=== PATIENT | male | born 1955 | race Caucasian/White ===

== ENCOUNTER 2021-01-19 14:39 | Emergency (ER) | payer MEDICARE, OTHER ==
[~2021-01-19] VITALS: Ht 165.1 cm; Wt 68.0 kg
[~2021-01-19 14:39] MED LIST: AMLO5 PO; CHLO25 PO; CLON.1 PO; COLC.6 PO; FLUC150A PO; HYDACE5 PO; IBUP400 PO; INDO50 PO; Naprosyn500 MG PO; Neurontin 300300 MG PO; RXHYDACE PO; SULTRIDS PO; Ultram50 MG PO
== END 2021-01-19 16:39 | disposition home or self-care (01) ==
LOC: ER 14:39
DX: S51.811A Laceration without foreign body of right forearm, initial encounter (principal); S09.90XA Unspecified injury of head, initial encounter; I69.351 Hemiplegia and hemiparesis following cerebral infarction affecting right dominant side; F10.129 Alcohol abuse with intoxication, unspecified; W01.10XA Fall on same level from slipping, tripping and stumbling with subsequent striking against unspecified object, initial encounter; Y92.481 Parking lot as the place of occurrence of the external cause
CPT/HCPCS: 70450; 99283-25

== ENCOUNTER 2021-04-13 14:01 | Emergency (ER) | payer MEDICARE, OTHER ==
[~2021-04-13] VITALS: Ht 172.7 cm; Wt 68.0 kg
[2021-04-13 14:40] LABS: BASOPHILS ABSOLUTE AUTO 0.04 K/mm3 (0.00-0.23); BASOPHILS PERCENT AUTO 0 % (0-2); EOSINOPHILS ABSOLUTE AUTO 0.04 K/mm3 (0.00-0.68); EOSINOPHILS PERCENT AUTO 0 % (0-6); Hematocrit 45.6 % (37.0-53.0); Hemoglobin 16.2 g/dL (13.5-17.5); IMMATURE GRAN ABSOLUTE AUTO 0.05 K/mm3 (0.00-0.10); IMMATURE GRAN PERCENT AUTO 1 % (0-1); LYMPHOCYTES ABSOLUTE AUTO 1.59 K/mm3 (0.84-5.20); LYMPHOCYTES PERCENT AUTO 15 % (21-46); MONOCYTES ABSOLUTE AUTO 1.47 K/mm3 (0.16-1.47); MONOCYTES PERCENT AUTO 14 % (4-13); Mean Corpuscular HGB 36.7 pg (26.0-34.0); Mean Corpuscular HGB Conc 35.5 g/dL (31.5-36.5); Mean Corpuscular Volume 103 fL (80-100); Mean Platelet Volume 11.3 fL (9.1-12.4); NEUTROPHILS ABSOLUTE AUTO 7.11 K/mm3 (1.96-9.15); NEUTROPHILS PERCENT AUTO 69 % (41-73); Platelet Count 138 K/mm3 (150-400); RDW Coefficient Variation 12.1 % (11.7-14.2); RDW Standard Deviation 46.8 fL (35.1-46.3); Red Blood Cell Count 4.42 M/mm3 (4.30-5.90)
[2021-04-13 15:00] LABS: Alanine Aminotransfer (ALT/SGP 34 U/L (12-78); Albumin, Blood 3.7 g/dL (3.4-5.0); Albumin/Globulin Ratio 0.8 (0.8-1.8); Alk Phos 68 U/L (50-136); Anion Gap 10 mmol/L (6-16); Aspartate Aminotrans (AST/SGOT 38 U/L (12-37); Bilirubin, Total 1.7 mg/dL (0.1-1.0); Blood Urea Nitrogen 17 mg/dL (8-24); Bun/Creatinine Ratio 23.2 (12.0-20.0); CO2, Blood 25 mmol/L (21-32); Calcium, Blood 9.3 mg/dL (8.5-10.1); Chloride, Blood 98 mmol/L (98-108); Creatinine, Blood 0.73 mg/dL (0.60-1.20); Globulin, Blood 4.4 g/dL (2.2-4.0); Glomerular Filtration Rate >60 (60-); Glucose, Blood 125 mg/dL (70-99); Potassium, Blood 3.5 mmol/L (3.5-5.5); Sodium, Blood 133 mmol/L (136-145); Total Protein, Blood 8.1 g/dL (6.4-8.2)
== END 2021-04-13 17:17 | disposition home or self-care (01) ==
LOC: ER 14:01
PROVIDERS: Emergency Medicine
DX: M25.562 Pain in left knee (principal); M25.561 Pain in right knee; F17.200 Nicotine dependence, unspecified, uncomplicated; R53.1 Weakness
CPT/HCPCS: 36415; 70450; 73562-LT; 73562-RT; 80053; 85025; 85651; 86140; 93005; 93010; 99284-25; A9270

== ENCOUNTER 2021-06-22 16:19 | Observation (INO) | payer OTHER ==
[~2021-06-22] VITALS: Ht 167.6 cm; Wt 57.4 kg
[2021-06-22 17:12] LABS: BASOPHILS ABSOLUTE AUTO 0.03 K/mm3 (0.00-0.23); BASOPHILS PERCENT AUTO 0 % (0-2); EOSINOPHILS ABSOLUTE AUTO 0.09 K/mm3 (0.00-0.68); EOSINOPHILS PERCENT AUTO 1 % (0-6); Hematocrit 38.4 % (37.0-53.0); Hemoglobin 13.9 g/dL (13.5-17.5); IMMATURE GRAN ABSOLUTE AUTO 0.03 K/mm3 (0.00-0.10); IMMATURE GRAN PERCENT AUTO 0 % (0-1); LYMPHOCYTES ABSOLUTE AUTO 1.78 K/mm3 (0.84-5.20); LYMPHOCYTES PERCENT AUTO 19 % (21-46); MONOCYTES ABSOLUTE AUTO 1.26 K/mm3 (0.16-1.47); MONOCYTES PERCENT AUTO 13 % (4-13); Mean Corpuscular HGB 36.8 pg (26.0-34.0); Mean Corpuscular HGB Conc 36.2 g/dL (31.5-36.5); Mean Corpuscular Volume 102 fL (80-100); NEUTROPHILS ABSOLUTE AUTO 6.43 K/mm3 (1.96-9.15); NEUTROPHILS PERCENT AUTO 67 % (41-73); Platelet Count 197 K/mm3 (150-400); RDW Coefficient Variation 13.6 % (11.7-14.2); RDW Standard Deviation 51.5 fL (35.1-46.3); Red Blood Cell Count 3.78 M/mm3 (4.30-5.90); White Blood Cell Count 9.62 K/mm3 (4.00-11.30)
[2021-06-22 17:26] LABS: Alanine Aminotransfer (ALT/SGP 31 U/L (12-78); Albumin, Blood 3.3 g/dL (3.4-5.0); Albumin/Globulin Ratio 0.9 (0.8-1.8); Alk Phos 80 U/L (50-136); Anion Gap 14 mmol/L (6-16); Aspartate Aminotrans (AST/SGOT 45 U/L (12-37); Bilirubin, Total 1.1 mg/dL (0.1-1.0); Blood Urea Nitrogen 17 mg/dL (8-24); Bun/Creatinine Ratio 13.9 (12.0-20.0); CO2, Blood 19 mmol/L (21-32); Calcium, Blood 9.6 mg/dL (8.5-10.1); Chloride, Blood 105 mmol/L (98-108); Creatinine, Blood 1.22 mg/dL (0.60-1.20); Globulin, Blood 3.6 g/dL (2.2-4.0); Glomerular Filtration Rate 59 (60-); Glucose, Blood 88 mg/dL (70-99); Potassium, Blood 3.9 mmol/L (3.5-5.5); Sodium, Blood 138 mmol/L (136-145); Total Protein, Blood 6.9 g/dL (6.4-8.2); Troponin I <0.015 ng/mL (0.000-0.040)
[2021-06-22 20:06] LABS: Source, Urine Clean Catch
[2021-06-22 20:09] LABS: Blood, Urine 1+ (Neg); Color, Urine Amber (P-Yellow); Glucose Qualitative, Urine Neg (Neg); Ketones, Urine 4+ (Neg); Leukocyte Esterase, Urine 1+ (Neg); Nitrite, Urine Pos (Neg); Protein, Urine 3+ (Neg); Specific Gravity, Urine 1.015 (1.003-1.022); Urobilinogen, Urine 3+ (Normal); pH, Urine 6.5 (5.0-8.0)
[2021-06-22 20:15] LABS: Appearance, Urine Hazy (Clear); Bilirubin, Urine 2+ (Neg)
[2021-06-22 20:18] LABS: U Amphetamine Screen DETECTED; U Barbituate Screen Not Detected; U Benzodiazapine Screen Not Detected; U Buprenorphine Screen Not Detected; U Cannabinoids Screen Not Detected; U Cocaine Screen Not Detected; U Methadone Screen Not Detected; U Methamphetamine Screen DETECTED; U Opiates Screen Not Detected; U Oxycodone Screen Not Detected; U Phencyclidine Screen Not Detected; U Propoxyphene Screen Not Detected
[2021-06-22 20:21] LABS: Red Blood Cells, Urine 0-2 /hpf (0-2); Squamous Epithelial Cells Rare /hpf (Few)
[2021-06-22 20:22] LABS: Bacteria Few /hpf
[2021-06-22 20:27] LABS: Salicylate 1.8 mg/dL (2.8-20.0)
[2021-06-22 20:29] LABS: Acetaminophen, Random <2.0 ug/mL (10.0-30.0)
[2021-06-22 22:00] LABS: Ethanol (Alcohol), Blood, Med <3 mg/dL; Phosphorus, Blood 3.8 mg/dL (2.5-4.9)
[2021-06-22 22:15] LABS: Base Excess Venous -1.4 mmol/L; Bicarbonate Venous 23.2 mmol/L (24.0-30.0); PCO2 Venous 38.4 mmHg (38-42); PO2 Venous 55.2 mmHg (38-42); pH Blood Venous 7.39 (7.34-7.37)
[2021-06-23 04:45] LABS: BASOPHILS ABSOLUTE AUTO 0.02 K/mm3 (0.00-0.23); BASOPHILS PERCENT AUTO 0 % (0-2); EOSINOPHILS ABSOLUTE AUTO 0.18 K/mm3 (0.00-0.68); EOSINOPHILS PERCENT AUTO 3 % (0-6); Hematocrit 36.9 % (37.0-53.0); Hemoglobin 12.7 g/dL (13.5-17.5); IMMATURE GRAN ABSOLUTE AUTO 0.01 K/mm3 (0.00-0.10); IMMATURE GRAN PERCENT AUTO 0 % (0-1); LYMPHOCYTES ABSOLUTE AUTO 1.58 K/mm3 (0.84-5.20); LYMPHOCYTES PERCENT AUTO 26 % (21-46); MONOCYTES ABSOLUTE AUTO 0.85 K/mm3 (0.16-1.47); MONOCYTES PERCENT AUTO 14 % (4-13); Mean Corpuscular HGB 36.2 pg (26.0-34.0); Mean Corpuscular HGB Conc 34.4 g/dL (31.5-36.5); Mean Corpuscular Volume 105 fL (80-100); Mean Platelet Volume 10.7 fL (9.1-12.4); NEUTROPHILS ABSOLUTE AUTO 3.39 K/mm3 (1.96-9.15); NEUTROPHILS PERCENT AUTO 56 % (41-73); Platelet Count 148 K/mm3 (150-400); RDW Coefficient Variation 13.5 % (11.7-14.2); RDW Standard Deviation 52.6 fL (35.1-46.3); Red Blood Cell Count 3.51 M/mm3 (4.30-5.90); White Blood Cell Count 6.03 K/mm3 (4.00-11.30)
[2021-06-23 05:10] LABS: Alanine Aminotransfer (ALT/SGP 24 U/L (12-78); Albumin, Blood 2.6 g/dL (3.4-5.0); Albumin/Globulin Ratio 0.8 (0.8-1.8); Alk Phos 67 U/L (50-136); Anion Gap 8 mmol/L (6-16); Aspartate Aminotrans (AST/SGOT 32 U/L (12-37); Bilirubin, Total 0.5 mg/dL (0.1-1.0); Blood Urea Nitrogen 13 mg/dL (8-24); Bun/Creatinine Ratio 14.6 (12.0-20.0); CO2, Blood 26 mmol/L (21-32); Calcium, Blood 8.3 mg/dL (8.5-10.1); Chloride, Blood 105 mmol/L (98-108); Creatinine, Blood 0.89 mg/dL (0.60-1.20); Globulin, Blood 3.3 g/dL (2.2-4.0); Glomerular Filtration Rate >60 (60-); Glucose, Blood 119 mg/dL (70-99); Potassium, Blood 3.1 mmol/L (3.5-5.5); Sodium, Blood 139 mmol/L (136-145); Total Protein, Blood 5.9 g/dL (6.4-8.2)
[2021-06-23] MEDS ORDERED: 8 HOUR ACETAMI650 MG PO (09:56)
--- NOTE | 2021-06-23 17:22 | NUR ---
SHIFT SUMMARY PT AAO ONLY TO SELF, [place], PLEASANTLY CONFUSED AND REDIRECTABLE. COOPERATIVE TO CARE. NO C/O PAIN OR ANY DISCOMFORT THIS SHIFT. PT REQUIRES 2P MAX ASSIST WITH BED MOBILITY D/T R SIDED WEAKNESS. PT IS INCONTINENT/CONTINENT, DENIES DYSURIA. PT WORKED WITH THERAPY THIS SHIFT. BED AT LOWEST POSITION W/ ALARM ON FOR SAFETY. BED AT LOWEST POSITION. CALL LIGHT WITHIN REACH.
--- NOTE | 2021-06-24 06:25 | NUR ---
COMBINATION MAN SUMMARY PT AAOX1 BUT PLEASANT. VERY CONFUSED WITH NON SENSICAL SPEECH AT TIMES. CIWA OF 3 DUE TO CONFUSION BUT NO HEADACHE, TREMORS, OR HALLUCINATIONS NOTED. BED ALARM ON PT FORGETS WHERE HE IS AND TRIES TO GET OUT OF BED WITHOUT ASSIST AT TIMES. BED LINENS CHANGED SEVERAL TIMES THROUGH THE NIGHT DUE TO PT PULLING DOWN ATTENDS AND URINATING ON THE BED AND FLOOR. PT CAN USE URINAL AT TIMES BUT SAYS HE FORGETS. VSS, WILL CONTINUE TO MONITOR.
[2021-06-24 06:29] LABS: Hematocrit 40.9 % (37.0-53.0); Hemoglobin 14.5 g/dL (13.5-17.5); Mean Corpuscular HGB 36.7 pg (26.0-34.0); Mean Corpuscular HGB Conc 35.5 g/dL (31.5-36.5); Mean Corpuscular Volume 104 fL (80-100); Mean Platelet Volume 11.5 fL (9.1-12.4); Platelet Count 176 K/mm3 (150-400); RDW Coefficient Variation 13.2 % (11.7-14.2); Red Blood Cell Count 3.95 M/mm3 (4.30-5.90); White Blood Cell Count 8.42 K/mm3 (4.00-11.30)
[2021-06-24 07:20] LABS: Alanine Aminotransfer (ALT/SGP 25 U/L (12-78); Albumin, Blood 2.9 g/dL (3.4-5.0); Albumin/Globulin Ratio 0.7 (0.8-1.8); Alk Phos 86 U/L (50-136); Anion Gap 10 mmol/L (6-16); Aspartate Aminotrans (AST/SGOT 34 U/L (12-37); Bilirubin, Total 0.8 mg/dL (0.1-1.0); Blood Urea Nitrogen 6 mg/dL (8-24); Bun/Creatinine Ratio 7.9 (12.0-20.0); CO2, Blood 26 mmol/L (21-32); Calcium, Blood 8.9 mg/dL (8.5-10.1); Chloride, Blood 98 mmol/L (98-108); Creatinine, Blood 0.76 mg/dL (0.60-1.20); Globulin, Blood 3.9 g/dL (2.2-4.0); Glomerular Filtration Rate >60 (60-); Glucose, Blood 83 mg/dL (70-99); Potassium, Blood 3.1 mmol/L (3.5-5.5); Sodium, Blood 134 mmol/L (136-145); Total Protein, Blood 6.8 g/dL (6.4-8.2)
--- NOTE | 2021-06-24 18:36 | NUR ---
A&OX1, PLEASANT AND COOPERATIVE WITH CARE, UNAWARE OF LIMITATIONS, BED/CHAIR ALARMS UTILIZED FOR SAFETY. PT IS ONE ASSIST TO BATHROOM WITH FWW AND GB. PARTICIPATED WITH PT/OT AND TOLERATED WELL. CIWA ONLY 3 ALL DAY AND THAT HAS BEEN DUE TO CONFUSION. PT REPORTED PAIN ALL OVER TO DR. RODGERS THIS AM, PT HAS SINCE DENIED PAIN WITHOUT INTERVENTION. PT DENIES N/V, SOB. PT HAS BEEN ABLE TO FEED SELF AND HAS HAD FAIR PO INTAKE. IV FELL OUT PT WAS ATTEMPTING TO STAND UNASSISTED, RECIEVED ORDER FROM DR. RODGERS FOR NO IV ACCESS NEEDED. NO OTHER CHANGES OR CONCERNS.
[2021-06-25 04:50] LABS: Hemoglobin 13.1 g/dL (13.5-17.5); Mean Corpuscular HGB 36.2 pg (26.0-34.0); Mean Corpuscular HGB Conc 35.4 g/dL (31.5-36.5); Mean Corpuscular Volume 102 fL (80-100); Mean Platelet Volume 10.8 fL (9.1-12.4); Platelet Count 163 K/mm3 (150-400); RDW Coefficient Variation 13.2 % (11.7-14.2); RDW Standard Deviation 49.8 fL (35.1-46.3); Red Blood Cell Count 3.62 M/mm3 (4.30-5.90); White Blood Cell Count 6.78 K/mm3 (4.00-11.30)
[2021-06-25 05:41] LABS: Alanine Aminotransfer (ALT/SGP 20 U/L (12-78); Albumin, Blood 2.6 g/dL (3.4-5.0); Albumin/Globulin Ratio 0.7 (0.8-1.8); Alk Phos 80 U/L (50-136); Anion Gap 8 mmol/L (6-16); Aspartate Aminotrans (AST/SGOT 25 U/L (12-37); Bilirubin, Total 0.7 mg/dL (0.1-1.0); Blood Urea Nitrogen 6 mg/dL (8-24); Bun/Creatinine Ratio 8.5 (12.0-20.0); CO2, Blood 26 mmol/L (21-32); Calcium, Blood 8.7 mg/dL (8.5-10.1); Chloride, Blood 103 mmol/L (98-108); Creatinine, Blood 0.71 mg/dL (0.60-1.20); Globulin, Blood 3.5 g/dL (2.2-4.0); Glomerular Filtration Rate >60 (60-); Glucose, Blood 103 mg/dL (70-99); Magnesium, Blood 1.7 mg/dL (1.6-2.4); Potassium, Blood 3.6 mmol/L (3.5-5.5); Sodium, Blood 137 mmol/L (136-145); Total Protein, Blood 6.1 g/dL (6.4-8.2)
--- NOTE | 2021-06-25 05:56 | NUR ---
PT ORIENTED TO SELF ONLY, SOMETIMES KNOWS HE IS AT HOSPITAL. VSS ON RA. CIWA 18 AND 15, PRODUCTION HONING MACHINE OPERATOR ATTEMPTED TO PLACE PIV FOR IV ATIVAN. PIV UNSUCCESSFUL. PO LIBRIUM GIVEN. PT SLEEPING B/W CARE. PT IMPULSIVE AND FREQUENTLY TRYING TO GET OOB, NOT USING CALL LIGHT. PT FREQUENTLY URINATING ON FLOOR. THIS AM ATTEMPTING TO USE URINAL. REPOSITIONED IN BED NEEDED.
--- NOTE | 2021-06-25 11:44 | NUR ---
ALERT TO SELF AND SURROUNDINGS. UNSURE WHY HE IS HERE. IMPULSIVE. KNOWS HE HAS RT SIDED WEAKNESS, BUT DOES TRY TO GET OOB ON HIS OWN. ALARMS USED. [place]. UNLABORED RESPIRATIONS. SISTER LEFT NOTE ABOUT PATIENT HAVING PAIN TO RT GREAT TOE FOR FEW DAYS AND WHEN PATINET QUERIED ABOUT ANY PAIN TO TOES OR FEET, PATIENT DENIES. BRUISING T/O. WC
--- NOTE | 2021-06-25 17:29 | NUR ---
ALERT TO SELF AND SURROUNDINGS. INCONTINENT OF URINE. PATIENT STANDS AND URINATES ON THE FLOOR AND HIMSELF. ONE PERSON ASSIST WITH GAITBELT AND WALKER WHEN UP. MULTIPLE BRUISES T/O FROM FALLING AT HOME. PATIENT MENTIONS ABOUT DIFFERENT TIMES HE HAS FALLEN AT HOME EITHER IN THE HOUSE OR OUTSIDE. UNLABORED RESPIRATIONS. NO ACUTE CHANGES. WCTM
--- NOTE | 2021-06-25 19:15 | NUR ---
ASSUMED CARE RECEIVED REPORT FROM ELSA NEFF. PT RESTING IN NAD. NO ACUTE NEEDS ASSESSED AT THIS TIME. CALL LIGHT, POSSESSIONS IN REACH, BED IN LOW AND LOCKED POSITION WITH ALARMS ON.
--- NOTE | 2021-06-26 04:07 | NUR ---
CLOTHING EXAMINER SUMMARY PT ASLEEP, IN NAD. APPEARED TO SLEEP T/O MUCH OF THE NIGHT. NO ACUTE CHANGES TO REPORT OVERNIGHT, CIWAS STABLE. PT CALM AND COOPERATIVE WITH CARES; NO BEHAVIORAL OUTBURSTS NOTED. NO ACUTE NEEDS ASSESSED AT THIS TIME. CALL LIGHT, POSSESSIONS IN REACH, BED IN LOW AND LOCKED POSITION WITH ALARMS ON. WILL CONTINUE TO PROVIDE CARE UNTIL REPORT GIVEN TO ONCOMING RN.
--- NOTE | 2021-06-26 08:00 | NUR ---
PT PLEASANT CONFUSED, ABLE TO TELL ME NAME AND . NOT SURE MUCH ELSE. FOLLOWS BASIC COMMANDS. NO SHAKING, TREMORS, DIZZINESS REPORTED. NO OBSERVABLE SWEATING, DENIES PAIN AT THIS TIME. HR REG, NO MURMER NOTED.. NO TELE. LUNGS CLEAR, RESP EASY UNLABORED. ON R.A. BT X4 ALST BM YEST AM PER PT. VOIDS INCONT. BED IN LOW POSITION, CALL LITE IN REACH, BED ALARM ON FOR SAFETY
[2021-06-26] MEDS ORDERED: ONE DAILY ESS400 MCG PO (09:22)
[2021-06-26] MEDS ORDERED: HYDCOR2.5C TOP (09:22)
--- NOTE | 2021-06-26 11:29 | NUR ---
DISCHARGE REVIEWED WITH PT AND SISTER. NO TELE NO IV. PT / SIS STATES UNDERSTANDS. FORMS GIVEN TO SISTER FOR MED AUTH. PT WHEELED TO DOOR BY AIDE AT 1133
== END 2021-06-26 11:28 | disposition home health service (06) ==
LOC: ER 16:19 → MEDS 16:20 → ER 22:19 → MEDS 22:19 → EDPENDDIS 06-26 08:54 → ENPENDDIS 06-26 08:54 → MEDS 06-26 11:28
PROVIDERS: Internal Medicine; Nurse Practitioner Acute Care; Physician Assistant; Student in an Organized Health Care Education/Training Program; ADMIT Internal Medicine
DX: G92 Toxic encephalopathy (principal); N17.9 Acute kidney failure, unspecified; F17.200 Nicotine dependence, unspecified, uncomplicated; F10.20 Alcohol dependence, uncomplicated; E87.6 Hypokalemia; E46 Unspecified protein-calorie malnutrition; F15.10 Other stimulant abuse, uncomplicated; I10 Essential (primary) hypertension; I69.151 Hemiplegia and hemiparesis following nontraumatic intracerebral hemorrhage affecting right dominant side
CPT/HCPCS: 36415; 70450; 71045; 72125; 80053; 81001; 82550; 82607; 82746; 82803; 82947; 83605; 83735; 84100; 84443; 84484; 85025; 85027; 86592; 87040; 87086; 92610; 93005; 93010; 96361; 96365; 96366; 96372; 96374; 96375; 97110; 97116; 97129; 97162; 97166; 97530; 97535; 99285-25; A9270; G0378; G0480; J0696; J1650; J2060; J3411; J3475; J7030; J7042; J7120

== ENCOUNTER 2021-07-08 17:49 | Observation (INO) | payer OTHER ==
[~2021-07-08] VITALS: Ht 172.7 cm; Wt 57.1 kg
[~2021-07-08 17:49] MED LIST changes: +8 HOUR ACETAMI650 MG PO; +HYDCOR2.5C TOP; +ONE DAILY ESS400 MCG PO
[2021-07-08 18:51] LABS: BASOPHILS ABSOLUTE AUTO 0.03 K/mm3 (0.00-0.23); BASOPHILS PERCENT AUTO 0 % (0-2); EOSINOPHILS ABSOLUTE AUTO 0.08 K/mm3 (0.00-0.68); EOSINOPHILS PERCENT AUTO 1 % (0-6); IMMATURE GRAN ABSOLUTE AUTO 0.03 K/mm3 (0.00-0.10); IMMATURE GRAN PERCENT AUTO 0 % (0-1); LYMPHOCYTES ABSOLUTE AUTO 1.41 K/mm3 (0.84-5.20); LYMPHOCYTES PERCENT AUTO 15 % (21-46); MONOCYTES ABSOLUTE AUTO 0.84 K/mm3 (0.16-1.47); MONOCYTES PERCENT AUTO 9 % (4-13); Mean Corpuscular HGB 36.3 pg (26.0-34.0); Mean Corpuscular HGB Conc 34.2 g/dL (31.5-36.5); Mean Corpuscular Volume 106 fL (80-100); NEUTROPHILS ABSOLUTE AUTO 7.33 K/mm3 (1.96-9.15); NEUTROPHILS PERCENT AUTO 76 % (41-73); Platelet Count 236 K/mm3 (150-400); RDW Coefficient Variation 13.2 % (11.7-14.2); RDW Standard Deviation 52.7 fL (35.1-46.3); Red Blood Cell Count 3.58 M/mm3 (4.30-5.90); White Blood Cell Count 9.72 K/mm3 (4.00-11.30)
[2021-07-08 19:10] LABS: Alanine Aminotransfer (ALT/SGP 26 U/L (12-78); Albumin, Blood 3.6 g/dL (3.4-5.0); Albumin/Globulin Ratio 0.9 (0.8-1.8); Alk Phos 98 U/L (50-136); Anion Gap 17 mmol/L (6-16); Aspartate Aminotrans (AST/SGOT 46 U/L (12-37); Bilirubin, Total 1.1 mg/dL (0.1-1.0); Blood Urea Nitrogen 16 mg/dL (8-24); Bun/Creatinine Ratio 13.2 (12.0-20.0); CO2, Blood 17 mmol/L (21-32); Calcium, Blood 9.7 mg/dL (8.5-10.1); Chloride, Blood 106 mmol/L (98-108); Creatinine, Blood 1.21 mg/dL (0.60-1.20); Glomerular Filtration Rate 60 (60-); Glucose, Blood 76 mg/dL (70-99); Potassium, Blood 4.1 mmol/L (3.5-5.5); Sodium, Blood 140 mmol/L (136-145); Total Protein, Blood 7.6 g/dL (6.4-8.2)
[2021-07-08 19:13] LABS: International Normalized Ratio 0.97; Prothrombin Time Results 10.5 Sec (9.7-11.5)
[2021-07-08 21:06] LABS: Source, Urine Clean Catch
[2021-07-08 21:07] LABS: Ethanol (Alcohol), Blood, Med <3 mg/dL
[2021-07-08 21:07] LABS: Bilirubin, Urine Neg (Neg); Blood, Urine Neg (Neg); Glucose Qualitative, Urine Neg (Neg); Ketones, Urine 4+ (Neg); Leukocyte Esterase, Urine Neg (Neg); Nitrite, Urine Neg (Neg); Protein, Urine 1+ (Neg); Specific Gravity, Urine 1.025 (1.003-1.022); Urobilinogen, Urine 1+ (Normal)
[2021-07-08 21:20] LABS: Appearance, Urine Clear (Clear); Color, Urine Yellow (P-Yellow)
[2021-07-08 21:21] LABS: U Amphetamine Screen DETECTED; U Methamphetamine Screen DETECTED
[2021-07-08 21:22] LABS: U Barbituate Screen Not Detected; U Benzodiazapine Screen DETECTED; U Buprenorphine Screen Not Detected; U Cannabinoids Screen Not Detected; U Cocaine Screen Not Detected; U Methadone Screen Not Detected; U Opiates Screen Not Detected; U Oxycodone Screen Not Detected; U Phencyclidine Screen Not Detected; U Propoxyphene Screen Not Detected
[2021-07-09 00:11] LABS: SARS-Cov-2 (COVID-19) PCR, MMC NEGATIVE (NEGATIVE)
--- NOTE | 2021-07-09 22:22 | NUR ---
PATIENT IS A NEW ADMIT FROM THE ED. FOUR PERSON TRANSFER FROM [facility] TO BED. ALERT TO SELF, SOMNOLENCE AND [place]. NO IV ON ADMIT. SEIZURE PRECAUTIONS AND PADS PLACED. REPORTS FOREARM PAIN WITH TOUCH AND FRAGILE SKIN. SKIN GRAFTS NOTED ON FOREARM AND RIGHT OUTER THIGH. DENIES SOB AND N/V. ON ROOM AIR. [facility] CONSULT FAXED INTO ED. SLEEPING ON/OFF DURING ASSESSMENT. BED ALARM ACTIVATED WITH FALL RISK. CALL LIGHT IN REACH.
--- NOTE | 2021-07-09 23:01 | NUR ---
PIV PLACED AND NS STARTED AT 75mL/HR X ONE BAG. PATIENT SLEEPING. CALL LIGHT IN REACH.
--- NOTE | 2021-07-10 04:16 | NUR ---
SHIFT SUMMARY PATIENT HAD NO ACUTE CHANGES OBSERVED. ALERT TO SELF AND BEDREST. [place] AND ON ROOM AIR. PIV REMAINS INTACT. NS INFUSING AT 75mL/HR X ONE. VSS/AFEBRILE. DENIES PAIN, SOB, AND N/V. PATIENT SOMNOLENT T/O SHIFT. CIWA 4-5. CALL LIGHT IN REACH. BED IN LOWEST POSITION AND ALARM ACTIVATED. WILL CONTINUE TO MONITOR UNTIL DAY SHIFT NURSE ASSUMES CARE.
[2021-07-10 06:01] LABS: Anion Gap 9 mmol/L (6-16); Blood Urea Nitrogen 10 mg/dL (8-24); Bun/Creatinine Ratio 14.3 (12.0-20.0); CO2, Blood 21 mmol/L (21-32); Calcium, Blood 9.4 mg/dL (8.5-10.1); Chloride, Blood 109 mmol/L (98-108); Glomerular Filtration Rate >60 (60-); Glucose, Blood 55 mg/dL (70-99); Potassium, Blood 3.9 mmol/L (3.5-5.5); Sodium, Blood 139 mmol/L (136-145)
--- NOTE | 2021-07-10 06:48 | NUR ---
PATIENT LAB CBG 55. HOSPITALIST DR MUKHERJEE NOTIFIED AFTER GIVING ORANGE JUICE AND FEW BITES OF SANDWICH. DR MUKHERJEE REPORTS TO GIVE DEXTROSE 50% 25mL IV X ONE AND RECHECK IN 20 MINUTES. CBG WAS 76 ON ADMIT.
--- NOTE | 2021-07-10 07:15 | NUR ---
CBG RECHECK 146, UP FROM CBG 55 AFTER DEXTROSE 50% IV 25mL. PATIENT SLEEPING BUT AROUSABLE.
--- NOTE | 2021-07-10 17:44 | NUR ---
PATIENT IS ALERT AND ORIENTED TO SELF AND FOLLOWING DIRECTIONS. HE HAS BEEN UP IN THE CHAIR MOST OF THE SHIFT. HE HAS WORKED WITH PT AND OT TODAY. 1PA WITH GAITBELT AND FWW TO THE BATHROOM. HE HAD A LARGE BM TODAY. USES THE URINAL. WILL CONTINUE TO MONITOR
--- NOTE | 2021-07-11 03:52 | NUR ---
SHIFT SUMMARY PATIENT HAD NO ACUTE CHANGES OBSERVED. AXOX 2-3 WITH CONFUSION. [place] AND ON ROOM AIR. ONE ASSIST W/GAITBELT AND FWW TO BATHROOM. USES URINAL AT BEDSIDE. TOOK MEDICATION WHOLE WITH WATER. DENIES PAIN, SOB, AND N/V. PIV REMAINS INTACT. D5-NS INFUSING AT 50 mL/HR. CIWA-3. VSS/AFEBRILE. ON [place]ERA. CALL LIGHT IN REACH. BED IN LOWEST POSITION AND ALARM ACTIVATED. WILL CONTINUE TO MONITOR UNTIL DAY SHIFT NURSE ASSUMES CARE.
--- NOTE | 2021-07-11 17:45 | NUR ---
PATIENT IS ALERT AND ORIENTED TO SELF, SURROUNDINGS AND FOLLOWING DIRECTIONS. HE USES THE URINAL INDEPENDENTLY. 1PA WITH FWW AND GAITBELT TO THE BATHROOM AND CHAIR. BEDLARM AND CHAIR ALARM IN PLACE. WILL CONTINUE TO MONITOR
--- NOTE | 2021-07-12 04:22 | NUR ---
PATIENT HAS BEEN PLEASANTLY CONFUSED. COOPERATIVE WITH STAFF AND CARE PROVIDED. CONTINUES ON DEXTROSE IVF. VITALS STABLE. SLEPT WELL T/O THE SHIFT. NO COMPLAINTS OR INDICATION OF PAIN NOTED OR REPORTED. CALL LIGHT WITHIN REACH.
--- NOTE | 2021-07-12 17:29 | NUR ---
PATIENT IS ALERT AND ORIENTED TO SELF, FAMILY AND FOLLOWING DIRECTIONS. HE DOES NOT KNOW WHY HE IS HERE. PATIENT USES THE URINAL INDEPENDENTLY. HE IS 1PA WITH FWW AND GAITBELT TO AMBULATE THE HALLS AND TO THE BATHROOM. HE WILL SIT UP IN THE CHAIR FOR MEALS. HE HAS A GOOD APPETITE. MILLE LACS. WILL CONTINUE TO MONITOR
--- NOTE | 2021-07-13 04:18 | NUR ---
SHIFT SUMMARY: PT IS ALERT AND CONFUSED. PT IS CALM AND COOPERATIVE WITH CARE. PT DOES NOT USE HIS CALL LIGHT BUT IS ABLE TO USE HIS URINAL INDEPENDENTLY WITH OCCASIONAL SPILLAGE, CHANGED AND CLEANED NEEDED. PT TOOK HIS MEDICATION WHOLE WITH WATER WITHOUT INCIDENT. PT SHOWS NO S/S FOR PAIN, NAUSEA, VOMITING, OR SOB. NO ACUTE CHANGES OR COMPLICATIONS OVERNIGHT. BED IN LOW POSITION, CALL LIGHT WITHIN REACH. WILL REPORT TO DAY NURSE.
--- NOTE | 2021-07-13 18:44 | NUR ---
shift summary: pt a/o to self and place. pt had no s/s of withdrawals t/out shift. He did have nausea post lunch reporting the burrito upset his stomach. zofran given for nausea and was effective. no other concerns through/out the day.
--- NOTE | 2021-07-14 04:28 | NUR ---
PATIENT IS PLEASANTLY CONFUSED; CAN BECOME IRRITABLE AND GROUCHY BUT COOPERATIVE WITH STAFF. VITALS STABLE. THERE HAVE BEEN NO ACUTE CHANGES TO REPORT OF AT THIS TIME.
[2021-07-14] MEDS ORDERED: QUET25 PO (12:11)
--- NOTE | 2021-07-14 13:40 | NUR ---
D/C ORDERS RECIEVED AND REVIEWED. KAITLIN IV REMOVED INTACT WITHOUTH DIFFICULTY, PT TOLERATED WELL. D/C INSTRUCTIONS AND HOME MEDS REVIEWED WITH PT. NEW RX FAXED TO PT'S PHARMACY OF CHOICE, [facility] PT VEBALIZED UNDERSTANDING AND AGREES WITH PLAN/ PT D/C HOME WITH SISTER AND TRANSPORTED VIA W/C BY [facility].
== END 2021-07-14 13:35 | disposition home health service (06) ==
LOC: ER 17:49 → MEDS 17:50 → ER 17:50 → EOR 17:50 → ERHOLD 17:50 → EOR 17:50 → MEDS 07-09 21:32
PROVIDERS: Internal Medicine; Physician Assistant; ADMIT Emergency Medicine
DX: G92 Toxic encephalopathy (principal); T43.625A Adverse effect of amphetamines, initial encounter; T42.4X5A Adverse effect of benzodiazepines, initial encounter; I69.351 Hemiplegia and hemiparesis following cerebral infarction affecting right dominant side; N17.9 Acute kidney failure, unspecified; E16.2 Hypoglycemia, unspecified; F10.10 Alcohol abuse, uncomplicated; F17.200 Nicotine dependence, unspecified, uncomplicated; F15.10 Other stimulant abuse, uncomplicated; E44.0 Moderate protein-calorie malnutrition; Z68.25 Body mass index [BMI] 25.0-25.9, adult; Z51.5 Encounter for palliative care; Z20.822 Contact with and (suspected) exposure to COVID-19
CPT/HCPCS: 36415; 70450; 80048; 80053; 82947; 85025; 85610; 85730; 93005; 93010; 96372-59; 96374; 96375; 97112; 97116; 97162; 97166; 97530; 97535; 99285-25; A9270; G0378; G0480; J1200; J1630; J2060; J7030; J7042; U0004

== ENCOUNTER 2023-06-13 07:58 | Inpatient (IN) | payer OTHER ==
[~2023-06-13] VITALS: Ht 167.6 cm; Wt 72.8 kg
[2023-06-13] VITALS (8 sets, daily range): BP systolic 162–196; BP diastolic 67–101
[~2023-06-13 07:58] MED LIST changes: +QUET25 PO
[2023-06-13 09:18] LABS: BASOPHILS ABSOLUTE AUTO 0.02 K/mm3 (0.00-0.23); BASOPHILS PERCENT AUTO 0 % (0-2); EOSINOPHILS ABSOLUTE AUTO 0.01 K/mm3 (0.00-0.68); EOSINOPHILS PERCENT AUTO 0 % (0-6); Hematocrit 40.9 % (37.0-53.0); Hemoglobin 14.7 g/dL (13.5-17.5); IMMATURE GRAN ABSOLUTE AUTO 0.06 K/mm3 (0.00-0.10); IMMATURE GRAN PERCENT AUTO 1 % (0-1); LYMPHOCYTES ABSOLUTE AUTO 1.12 K/mm3 (0.84-5.20); LYMPHOCYTES PERCENT AUTO 9 % (21-46); MONOCYTES ABSOLUTE AUTO 1.06 K/mm3 (0.16-1.47); MONOCYTES PERCENT AUTO 9 % (4-13); Mean Corpuscular HGB 38.6 pg (26.0-34.0); Mean Corpuscular HGB Conc 35.9 g/dL (31.5-36.5); Mean Corpuscular Volume 107 fL (80-100); NEUTROPHILS ABSOLUTE AUTO 10.08 K/mm3 (1.96-9.15); NEUTROPHILS PERCENT AUTO 82 % (41-73); Platelet Count 110 K/mm3 (150-400); RDW Coefficient Variation 13.5 % (11.7-14.2); RDW Standard Deviation 53.3 fL (35.1-46.3); Red Blood Cell Count 3.81 M/mm3 (4.30-5.90); White Blood Cell Count 12.35 K/mm3 (4.00-11.30)
[2023-06-13 09:38] LABS: Albumin, Blood 3.9 g/dL (3.4-5.0); Bilirubin, Total 1.2 mg/dL (0.1-1.0); Bun/Creatinine Ratio 21.6 (12.0-20.0); Creatinine, Blood 0.7 mg/dL (0.60-1.20); Globulin, Blood 3.9 g/dL (2.2-4.0); Potassium, Blood 3.9 mmol/L (3.5-5.5); Total Protein, Blood 7.8 g/dL (6.4-8.2)
--- NOTE | 2023-06-13 12:45 | NUR ---
ADMISSION: PT ARRIVED TO SURG @1210, ALERT AND ORIENTED X3, PT WITH HX OF HEMORRHAGIC STROKE WITH R. SIDE DEFICIT, POOR HISTORIAN. ABLE TO FOLLOW COMMANDS AND MAKE NEEDS KNOWN. BP AND HR STABLE. AFEBRILE. SATS >96% ON ROOM AIR. PT WITH R. HIP FRACTURE, PAINFUL TO REPOSITION. PLAN FOR SURG 06/14/23, NPO AT MIDNIGHT. PT WITH HX OF ETOH WITHDRAWL, STATES LAST DRINK WAS 06/12/23, CONSUMED ONE BEER, DRINKS "ABOUT SIX A DAY." WILL MONITOR WITHDRAWL SYMPTOMS. PT ORIENTED TO ROOM AND CALL LIGHT SYSTEM, BED IN LOW, CALL LIGHT IN REACH, WILL REPORT TO ONCOMING RN.
--- NOTE | 2023-06-13 17:32 | NUR ---
SHIFT SUMMARY: NO ACUTE CHANGES SINCE ADMISSION. PT REMAINS ALERT AND ORIENTED X3, FORGETFUL AT TIMES. EKWOK. BP AND HR STABLE. AFEBRILE. SATS >98% ON ROOM AIR. PLAN FOR SURG IN AM, NPO AT MIDNIGHT. PT SISTER CALLED AND UPDATED ON PT CARE WITH PERMISSION. NS GTT 100ML/HR. BED IN LOW, ALARM ON, CALL LIGHT IN REACH, WILL REPORT TO ONCOMING RN.
[2023-06-13 21:51] LABS: Source, Urine Clean Catch
[2023-06-13 21:54] LABS: Bilirubin, Urine Neg (Neg); Blood, Urine 1+ (Neg); Glucose Qualitative, Urine Neg (Neg); Ketones, Urine 4+ (Neg); Leukocyte Esterase, Urine Neg (Neg); Nitrite, Urine Neg (Neg); Protein, Urine 1+ (Neg); Urobilinogen, Urine 3+ (Normal)
[2023-06-13 22:01] LABS: Appearance, Urine Clear (Clear); Bacteria Not Seen /hpf; Color, Urine Yellow (P-Yellow); Mucus Light (0-Heavy); Red Blood Cells, Urine 0-2 /hpf (0-2); Squamous Epithelial Cells Rare /hpf (Few); White Blood Cells, Urine Not Seen /hpf (0-5)
[2023-06-14] VITALS (23 sets, daily range): BP systolic 99–194; BP diastolic 51–111
[2023-06-14 05:30] LABS: Hematocrit 36.4 % (37.0-53.0); Hemoglobin 12.9 g/dL (13.5-17.5); Mean Corpuscular HGB 38.2 pg (26.0-34.0); Mean Corpuscular HGB Conc 35.4 g/dL (31.5-36.5); Mean Corpuscular Volume 108 fL (80-100); Mean Platelet Volume 10.2 fL (9.1-12.4); Platelet Count 106 K/mm3 (150-400); RDW Coefficient Variation 13.7 % (11.7-14.2); RDW Standard Deviation 54.4 fL (35.1-46.3); Red Blood Cell Count 3.38 M/mm3 (4.30-5.90); White Blood Cell Count 11.44 K/mm3 (4.00-11.30)
[2023-06-14 05:57] LABS: Magnesium, Blood 1.8 mg/dL (1.6-2.4)
[2023-06-14 05:58] LABS: Albumin, Blood 3.4 g/dL (3.4-5.0); Albumin/Globulin Ratio 0.9 (0.8-1.8); Bilirubin, Total 1.6 mg/dL (0.1-1.0); Bun/Creatinine Ratio 25.4 (12.0-20.0); Calcium, Blood 8.8 mg/dL (8.5-10.1); Creatinine, Blood 0.67 mg/dL (0.60-1.20); Globulin, Blood 3.9 g/dL (2.2-4.0); Phosphorus, Blood 1.7 mg/dL (2.5-4.9); Potassium, Blood 4.5 mmol/L (3.5-5.5); Total Protein, Blood 7.3 g/dL (6.4-8.2)
--- NOTE | 2023-06-14 06:54 | NUR ---
SHIFT SUMMARY AOx3 @BEGINNING OF SHIFT, JUST FORGETFUL OF MONTH. BP ELEVATED @BEGINNING OF SHIFT 196/81, 189/81. MEDICATED c 1 TAB PERCOCET & PT REPORTED NO PAIN RELIEF, THEREFORE MEDICATED c 25MCG FENTANYL & BP STILL ELEVATED. INFORMED DR JARAMILLO & HE ORDERED PRN HYDRALAZINE & SCHEDULED COZAAR TO START IN AM. GAVE HYDRALAZINE & BP DECREASED TO 164/67. THIS AM CIWA SCORE 10 THEN 13, MEDICATED FIRST c 25MG LIBRIUM WHICH CIWA SCORE HAD INCREASED THEREFORE GAVE 1MG IV ATIVAN. PT MORE CONFUSED AOX2, FORGETFUL PLACE, SITUATION, DATE. MORE AGITATED, ANXIOUS, TREMULOUS THIS AM THEN LAST NIGHT. BP ELEVATED AGAIN THIS AM, THEREFORE GAVE ANOTHER DOSE HYDRALAZINE & BP DECREASED TO 163/84. REST OF VSS. DENIES N/V. HAS BEEN NPO SINCE MIDNIGHT FOR POSSIBLE R HIP REPAIR TODAY. CALL LIGHT & BED ALARM IN PLACE.
[2023-06-14 11:50] LABS: Prothrombin Time Results 10.5 Sec (9.7-11.5)
--- NOTE | 2023-06-14 17:01 | NUR ---
06/14/23 1701 Candelaria Rojas PRIOR TO ARRIVING IN THE OR PATIENT RECEIVED VANCO 1GM IN THE PREOP SETTING.
--- NOTE | 2023-06-14 19:11 | NUR ---
SHIFT SUMMARY PT SLEEPING/AROUSABLE, VSS/RA/BIOX SATS 95 HR 84, S/P 1845, R HEMIHIP, DRESSING CDI. FIRE PREVENTION EDU/IGNITION DEVICES ASSESSED. REPORT PROVIDED TO MIRANDA HUNTER.
[2023-06-15 05:19] VITALS: BP 146/77
[2023-06-15 07:12] LABS: Hematocrit 30.9 % (37.0-53.0); Hemoglobin 10.8 g/dL (13.5-17.5); Mean Corpuscular Volume 109 fL (80-100); Mean Platelet Volume 10.6 fL (9.1-12.4); Platelet Count 95 K/mm3 (150-400); RDW Coefficient Variation 13.6 % (11.7-14.2); RDW Standard Deviation 54.1 fL (35.1-46.3); Red Blood Cell Count 2.84 M/mm3 (4.30-5.90)
[2023-06-15 07:21] VITALS: BP 118/57
--- NOTE | 2023-06-15 07:27 | NUR ---
NO RISKS OF IGNITION OR FIRE HAZARD IDENTIFIED.
--- NOTE | 2023-06-15 07:28 | NUR ---
SUMMARY PT WOKE FULLY THIS AM AND ASSISTED STAFF WITH PARTIAL LINEN CHANGE.PT HAS SMALL BRUISE TO BUTTOCK AND SLIGHT SKIN SLOUGH AT CREASE. PT DID NOT UNDERSTAND ABOUT PICTURE, SO WAS UNABLE TO TAKE. MEPILEX PLACED.PT WITH MILD SLURRING OF SPEECH THIS AM AND OCC MUMBLE,BUT ALSO WITH APPEARANCE OF SOME EXPRESSIVE APHASIA. PT WITH HX CVA AND SISTER IN ADDITION TO PT REPORT THIS IS INTERMITTENT AND BASELINE FOR HIM.PT VOIDING VIA URINAL WITH ASSIST.ICE TO R HIP.CIRC CKS INTACT.
[2023-06-15 07:40] LABS: Albumin, Blood 2.9 g/dL (3.4-5.0); Anion Gap 7 mmol/L (6-16); Blood Urea Nitrogen 21 mg/dL (8-24); Bun/Creatinine Ratio 30.3 (12.0-20.0); CO2, Blood 21 mmol/L (21-32); Calcium, Blood 8.1 mg/dL (8.5-10.1); Chloride, Blood 110 mmol/L (98-108); Creatinine, Blood 0.69 mg/dL (0.60-1.20); Glomerular Filtration Rate 100 (60-); Glucose, Blood 163 mg/dL (70-99); Phosphorus, Blood 2.2 mg/dL (2.5-4.9); Potassium, Blood 4.9 mmol/L (3.5-5.5); Sodium, Blood 138 mmol/L (136-145)
[2023-06-15 09:29] VITALS: BP 101/74
[2023-06-15 15:12] VITALS: BP 123/58
--- NOTE | 2023-06-15 15:37 | NUR ---
SPiritual Care Attempted. Pt. is sitting up in the recliner. Pt. displays evidence of visceral pain, and declines spiritual care. Pt. verbalizes that he is in great pain and is concerned about the transfer back into his bed. This drawing machine operator updated nurse Amaya.
--- NOTE | 2023-06-15 16:34 | NUR ---
PT AGREED TO TAKING PHOTO OF WOUND OF GLUTEAL FOLD(PRESENT ON ADMIT), NOW IN CHART. WITNESSED BY MARIA DEL ROSARIO ARZATE RN.
--- NOTE | 2023-06-15 16:54 | NUR ---
SHIFT SUMMARY POD1 R BRIAN HIP, DRESSING CDI. A&OX4, VSS/RA. RADHA PO - PT FULL ASSIST WITH MEALS, BASED ON HIS HISTORY AND DIFFICULTY OF EATING INDEPENDENTLY FINGER FOOD ORDERED. VOIDING - PLACED CONDOM CATH TO ASSIST WITH KEEPING PT CLEAN AND DRY, AND CONVENIENCE. STAND PIVOT TRANSFER TO CHAIR WITH PHYSICAL THERAPY; PT TRANSFERRED WITH SLIDER SHEET TO BED HE WAS ANXIOUS ABOUT STANDING AND PIVOTING. PAIN MANAGED PER EMAR. WILL REPORT TO ONCOMING NOC RN.
--- NOTE | 2023-06-15 17:20 | NUR ---
TELEPHONE CALL TO HOSPITALIST DR LESTER RE DVT PROPHYLAXIS. NEW ORDER RECEIVED: LOVENOX SQ 40MG DAILY, START NOW. TELEPHONE CALL TO DR HOPKINS ORTHO SURGEON WHO APPROVED THIS ORDER FOR THIS PATIENT.
[2023-06-15 19:26] VITALS: BP 137/70
--- NOTE | 2023-06-16 04:24 | NUR ---
EOS NOTE: PATIENT HAD A DIFFICULT TIME COMPREHENDING HOW A CONDOM CATHETER WORKED, PULLING THE CATHETER OFF TWICE AND URINATING ON HIS BEDDING. PATIENT AND BEDDING WERE CHANGED TWICE, CONDOM CATH REPLACED BOTH TIMES. EDUCATED PATIENT AGAIN ON HOW THE CONDOM CATHETER WORKS. THIRD CONDOM CATH PATIENT WAS ABLE TO DEMONSTRATE APPROPRIATE USAGE AND LEFT IT ON THE REMAINDER OF THE SHIFT. MEDICATED PATIENT WITH PRN'S EARLY IN THE SHIFT AND HE WAS ABLE TO REST QUIETLY THROUGHOUT THE NIGHT. PATIENT IS A/OX4, EXHIBITED MOMENTS OF FORGETFULNESS, VERY KIND AND COOPERATIVE. 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 MEPLIEX IN PLACE, INCISION TO RIGHT HIP IS MILDLY RED CONCURRENT WITH DAY SHIFT ASSESSMENT. DRESSING IS C/D/I. WILL CONTINUE TO MONITOR.
[2023-06-16 04:53] VITALS: BP 149/74
[2023-06-16 05:34] LABS: Hematocrit 27.5 % (37.0-53.0); Hemoglobin 9.8 g/dL (13.5-17.5); Mean Corpuscular HGB Conc 35.6 g/dL (31.5-36.5); Mean Corpuscular Volume 107 fL (80-100); Mean Platelet Volume 10.7 fL (9.1-12.4); Platelet Count 109 K/mm3 (150-400); RDW Coefficient Variation 13.3 % (11.7-14.2); RDW Standard Deviation 52.3 fL (35.1-46.3); Red Blood Cell Count 2.58 M/mm3 (4.30-5.90); White Blood Cell Count 9.05 K/mm3 (4.00-11.30)
[2023-06-16 06:36] LABS: Albumin, Blood 2.5 g/dL (3.4-5.0); Anion Gap 8 mmol/L (6-16); Blood Urea Nitrogen 19 mg/dL (8-24); Bun/Creatinine Ratio 28.3 (12.0-20.0); CO2, Blood 22 mmol/L (21-32); Chloride, Blood 112 mmol/L (98-108); Creatinine, Blood 0.67 mg/dL (0.60-1.20); Glomerular Filtration Rate 101 (60-); Glucose, Blood 117 mg/dL (70-99); Phosphorus, Blood 2.5 mg/dL (2.5-4.9); Potassium, Blood 3.3 mmol/L (3.5-5.5); Sodium, Blood 142 mmol/L (136-145)
[2023-06-16 07:52] VITALS: BP 142/73
[2023-06-16 14:16] LABS: SARS-Cov-2 (COVID-19) PCR, MMC NEGATIVE (NEGATIVE)
[2023-06-16 15:09] VITALS: BP 141/70
--- NOTE | 2023-06-16 16:05 | NUR ---
SHIFT SUMMARY NO ACUTE CHANGES THIS SHIFT. PATIENT UP TO CHAIR T/O SHIFT, WORKED WITH PT & OT. 2P ASSIST W/ FWW & GB TO CHAIR & BSC. TOLERTAING FINGER FOOD DIET WELL, ABLE TO FEED SELF WITH TRAY SETUP. CONTINENT/INCONTINENT OF URINE, ATTENDS IN PLACE, CHANGED PRN. USES URINAL INDEPENDELTY ALSO. DOES NOT USE CALL LIGHT APPROPRIATELY, CALLS WITH NO NEEDS IDENTIFIED, PROVIDE EDUCATION & REORIENTATION NEEDED. PATIENT FORGETFUL OF TIME AND SITUATION ALTHOUGH EASILY REDIRECTABLE. CALL LIGHT IN REACH, BED ALARM IN PLACE. PATIENT DENIES ANY SOURCE OF IGNTION AT TIME OF ROUNDS.
[2023-06-16 19:15] VITALS: BP 177/63
[2023-06-17 04:34] VITALS: BP 159/72
--- NOTE | 2023-06-17 04:36 | NUR ---
SHIFT SUMMARY POD3 LEFT BRIAN HIP. SENSATION AND CIRCULATION REMAIN INTACT IN RLE. WEAKNESS NOTED ON R SIDE FROM HX OF CVA. DRESSING IS INTACT, SMALL AMOUNT OF BLEEDING NOTED UNDER PRINEO. VSS. PT SLEPT WELL T/O THE NIGHT. REPOSITIONED Q2, SMALL SLOW TO DILIP SPOT NOTED ON BOTTOM OF BUTTOX. PT MEDICATED FOR PAIN ONCE WITH NORCO. PT TOLLERATING PO INTAKE W/O N/V, VOIDING W/O DIFFICULTY. NO BM'S NOTED. NO ACUTE EVENTS T/O THE NIGHT. PLAN FOR PT TO D/C TO SNF AFTER INSURANCE AUTHORIZATION. THE PATIENT IS RESTING IN BED, IN NO DISTRESS, CALL LIGHT IN REACH
--- NOTE | 2023-06-17 05:31 | NUR ---
FIRE SAFETY NO IGNITION SOURCE NOTED.
[2023-06-17 07:13] VITALS: BP 154/71
[2023-06-17 14:16] VITALS: BP 167/61
[2023-06-17 14:17] VITALS: BP 167/61
--- NOTE | 2023-06-17 16:15 | NUR ---
DISCHARGE PATIENT TRANSFERRED TO [facility] VIA [facility]. PATIENT TRANSPORTED IN W/C WITH BELONGINGS. REPORT CALLED TO RN AT [facility]. PRENIO DRESSING INTACT TO RIGHT HIP, CLEAN & DRY. TRANSFERS 2P MOD/MAX ASSIST. PAIN MANAGED PER EMAR. VOIDING WELL, HAS NOT HAD BM, MEDICATED PER EMAR FOR BOWEL CARE.
== END 2023-06-17 16:30 | DRG 522 ==
LOC: ER 07:58 → SURS 10:30
PROVIDERS: Orthopaedic Surgery; Physician Assistant; ADMIT Internal Medicine
PROC: 0SRR0JA Replacement of Right Hip Joint, Femoral Surface with Synthetic Substitute, Uncemented, Open Approach (ICD-10-PCS; principal; 2023-06-14 16:00)
PROC: HZ2ZZZZ Detoxification Services for Substance Abuse Treatment (ICD-10-PCS; 2023-06-17)
DX: S72.001A Fracture of unspecified part of neck of right femur, initial encounter for closed fracture (principal); I69.351 Hemiplegia and hemiparesis following cerebral infarction affecting right dominant side; F10.231 Alcohol dependence with withdrawal delirium; W18.30XA Fall on same level, unspecified, initial encounter; R29.6 Repeated falls; F17.210 Nicotine dependence, cigarettes, uncomplicated; I10 Essential (primary) hypertension; G89.29 Other chronic pain; F15.10 Other stimulant abuse, uncomplicated; D72.829 Elevated white blood cell count, unspecified; Y90.1 Blood alcohol level of 20-39 mg/100 ml; K70.9 Alcoholic liver disease, unspecified; D69.6 Thrombocytopenia, unspecified; E83.39 Other disorders of phosphorus metabolism; S80.12XA Contusion of left lower leg, initial encounter; S80.11XA Contusion of right lower leg, initial encounter; E87.6 Hypokalemia; Z20.822 Contact with and (suspected) exposure to COVID-19; Z98.890 Other specified postprocedural states; Y92.009 Unspecified place in unspecified non-institutional (private) residence as the place of occurrence of the external cause
CPT/HCPCS: 36415; 72170; 72192; 73502; 80053; 80069; 81001; 83735; 84100; 85025; 85027; 85610; 93005; 93010; 94762; 96374; 97110; 97162; 97166; 97530; 97535; 99285-25; A9270; C1713; C1776; G0480; J0171; J0360; J0690; J0735; J1100; J1170; J1650; J1885; J2060; J2371; J2405; J2704; J2795; J3010; J3370; J7030; J7060; J7120; U0002

== ENCOUNTER 2023-07-30 11:11 | Emergency (ER) | payer OTHER ==
[~2023-07-30] VITALS: Ht 172.7 cm; Wt 63.5 kg
[2023-07-30 11:26] VITALS: BP 149/80
[2023-07-30] MEDS ORDERED: OXYCODONE-ACET1 EAC3 PO (11:32)
[2023-07-30] MEDS ORDERED: LIDO700A20 TOP (13:15)
[2023-07-30] MEDS ORDERED: Voltaren100 GM TOP (13:15)
== END 2023-07-30 15:46 | disposition home or self-care (01) ==
LOC: ER 11:11
DX: M25.551 Pain in right hip (principal); G89.29 Other chronic pain; F10.20 Alcohol dependence, uncomplicated; F17.210 Nicotine dependence, cigarettes, uncomplicated
CPT/HCPCS: 73502; 99283-25

== ENCOUNTER → 2023-11-26 | Outpatient (CLI) | payer OTHER ==
[~2023-11-26] MED LIST changes: +LIDO700A20 TOP; +OXYCODONE-ACET1 EAC3 PO; +Voltaren100 GM TOP
[2023-11-26 12:31] LABS: BASOPHILS ABSOLUTE AUTO 0.03 K/mm3 (0.00-0.23); BASOPHILS PERCENT AUTO 0 % (0-2); EOSINOPHILS ABSOLUTE AUTO 0.15 K/mm3 (0.00-0.68); EOSINOPHILS PERCENT AUTO 2 % (0-6); Hemoglobin 13.9 g/dL (13.5-17.5); IMMATURE GRAN ABSOLUTE AUTO 0.03 K/mm3 (0.00-0.10); IMMATURE GRAN PERCENT AUTO 0 % (0-1); LYMPHOCYTES ABSOLUTE AUTO 1.72 K/mm3 (0.84-5.20); LYMPHOCYTES PERCENT AUTO 20 % (21-46); MONOCYTES ABSOLUTE AUTO 1.03 K/mm3 (0.16-1.47); MONOCYTES PERCENT AUTO 12 % (4-13); Mean Corpuscular HGB 35.4 pg (26.0-34.0); Mean Corpuscular HGB Conc 34.8 g/dL (31.5-36.5); Mean Corpuscular Volume 102 fL (80-100); Mean Platelet Volume 10.2 fL (9.1-12.4); NEUTROPHILS ABSOLUTE AUTO 5.58 K/mm3 (1.96-9.15); NEUTROPHILS PERCENT AUTO 65 % (41-73); Platelet Count 150 K/mm3 (150-400); RDW Coefficient Variation 14.1 % (11.7-14.2); RDW Standard Deviation 53.1 fL (35.1-46.3); Red Blood Cell Count 3.93 M/mm3 (4.30-5.90); White Blood Cell Count 8.54 K/mm3 (4.00-11.30)
== END | disposition home or self-care (01) ==
LOC: LAB SHORT 12:26 → LAB 12:26
PROVIDERS: Physician Assistant Surgical
DX: M79.642 Pain in left hand (principal)
CPT/HCPCS: 84550; 85025